=== PATIENT | female | born 1935 | race Caucasian/White ===

== ENCOUNTER → 2016-09-03 | Outpatient (CLI) | payer MEDICARE, OTHER ==
[2016-09-03 14:25] LABS: Anion Gap 10 mmol/L; Blood Urea Nitrogen 13 mg/dL (7-17); Calcium 9.4 mg/dL (8.4-10.2); Carbon Dioxide 27 mmol/L (22-30); Chloride 105 mmol/L (98-107); Glucose 102 mg/dL (74-99); Non-African American GFR(MDRD) 59 (>60 ml/min/1.73 sqM); Potassium 4.8 mmol/L (3.5-5.1); Sodium 142 mmol/L (137-145)
== END | disposition home or self-care (01) ==
LOC: LABWHC1 13:34
PROVIDERS: ATTEND Internal Medicine Cardiovascular Disease
DX: I49.9 Cardiac arrhythmia, unspecified (principal)
CPT/HCPCS: 36415; 80048

== ENCOUNTER 2016-12-21 12:09 | Day surgery (SDC) | payer MEDICARE, OTHER ==
[2016-12-21 12:38] VITALS: TEMP 98.1
[2016-12-21] MEDS ORDERED: ALPRAZolam 0.25 MG TAB PO STA (12:38)
[2016-12-21 13:20] VITALS: RESP 18
--- NOTE | 2016-12-21 14:08 | US ---
EXAMINATION TYPE: US thyroid st tissue head/neck DATE OF EXAM: 12/21/2016 COMPARISON: None. CLINICAL HISTORY: Left sided nodule. Right thyroid nodule GLAND SIZE: Right Lobe: 3.2 x 1.3 x 1.6 cm Overall Parenchyma: homogenous Left Lobe: 2.5 x 0.8 x 0.8 cm Overall Parenchyma: homogeneous Isthmus Thickness: 0.2 cm NODULES RIGHT: # of nodules measured on right: 2 1. 2.3 X 1.2 x 1.4 cm hypoechoic solid nodule at the mid pole with well-defined margins. This nodul e is wider than tall and shows intranodular vascularity. Prior size: no previous 2. 0.6 X 0.3 x 0.5 cm hypoechoic nodule at the upper pole with well-defined margins. This nodule is wider than tall and shows no intranodular vascularity. Prior size: no previous LEFT: # of nodules measured on left: 0 ISTHMUS: # of nodules measured in the isthmus: 0 Bilateral neck scanned, no evidence of lymphadenopathy. IMPRESSION: MULTINODULAR GOITER.
--- NOTE | 2016-12-21 14:11 | US ---
ULTRASOUND GUIDED FNA THYROID BIOPSY: CLINICAL HISTORY: Right-sided thyroid nodule requested for FNA FINDINGS: The procedure was explained to the patient. The risks, complications, benefits and alternatives were discussed and any questions were answered. Informed consent was obtained. Patient was placed supin e on the ultrasound table and prepped and draped in the usual sterile fashion. Utilizing a 25 gauge needle, five passes were made into the requested right thyroid nodule. Patient was stable throughout the procedure. Pathology is pending. All elements of maximal barrier technique were utilized. IMPRESSION: 1. Successful ultrasound guided FNA thyroid biopsy.
[2016-12-21 14:53] VITALS: BP 148/74; PULSE 70
== END 2016-12-21 14:00 | disposition home or self-care (01) ==
LOC: RADPROMAIN 12:09
PROVIDERS: ATTEND Surgery
DX: E04.2 Nontoxic multinodular goiter (principal)
CPT/HCPCS: 10022; 76536; 76942; 88173; 88305